=== PATIENT | female | born 1955 | race Caucasian/White ===

== ENCOUNTER → 2016-05-01 | Outpatient (CLI) | payer OTHER ==
[~2016-05-01] MED LIST: COUMADIN5 MG PO; LOVENOX DP100 MG/1 M SQ; PROTONIX40 MG PO; SYNTHROID112 MCG PO; XOPENEX (C1.25 MG/0. IH; XOPENEX HFA15 GM IH
== END | disposition home or self-care (01) ==
LOC: PTH.S 09:54
DX: I26.99 Other pulmonary embolism without acute cor pulmonale (principal)